=== PATIENT | male | born 1965 | race Two or more races ===

== ENCOUNTER → 2024-09-23 | Emergency (ER) | payer OTHER ==
[~2024-09-23] VITALS: Ht 172.7 cm; Wt 90.7 kg
[~2024-09-23] MED LIST: DRAMAMINE LESS25 MG; KETOROLAC TROMETHAMINE 60 MG VIAL IM ONE; NAPROXEN375 MG; NORFLEX100MG PO
[2024-09-23 10:46] LABS: BASO % 0.3 % (0.1-1.2); EOS # 0.16 (0.04-0.54); EOS % 4.2 % (0.7-7.0); LYMPH # 1.33 (1.18-3.74); LYMPH % 34.7 % (19.3-53.1); MEAN PLATELET VOLUME 11.20 fl (9.4-12.4); MONO # 0.39 (0.24-0.82); MONO % 10.2 % (4.7-12.5); NEUT # 1.93 (1.56-6.13); NEUT % 50.3 % (34.0-71.1); RED CELL DISTRIBUTION WIDTH 12.7 % (11.6-14.4)
== END | disposition home or self-care (01) ==
LOC: ER 09:16
PROVIDERS: General Practice
DX: M94.0 Chondrocostal junction syndrome [Tietze] (principal); I10 Essential (primary) hypertension; E78.00 Pure hypercholesterolemia, unspecified; E11.9 Type 2 diabetes mellitus without complications; Z91.013 Allergy to seafood